=== PATIENT | female | born 1975 | race Caucasian/White ===

== ENCOUNTER 2016-10-18 18:52 | Emergency (ER) | payer MEDICAID ==
[2016-10-18] MEDS ORDERED: oxyCOD/ACETAMIN 5 MG/325 MG TABLET PO STA (19:24)
[2016-10-18] MEDS ORDERED: oxyCOD/ACETAMIN 5 MG/325 MG TABLET PO ONE (19:29)
[2016-10-18] MEDS ORDERED: oxyCODONE/ACET 5/325 Prepack 4 PO STA (20:32)
[2016-10-18] MEDS ORDERED: oxyCODONE/ACET 5/325 Prepack 4 PO ONE (20:39)
== END 2016-10-18 20:47 | disposition home or self-care (01) ==
DX: S20.212A Contusion of left front wall of thorax, initial encounter (principal); W01.198A Fall on same level from slipping, tripping and stumbling with subsequent striking against other object, initial encounter; F17.200 Nicotine dependence, unspecified, uncomplicated
CPT/HCPCS: 71101; 99283; A9270

== ENCOUNTER 2016-10-24 14:31 | Outpatient (CLI) | payer MEDICAID | END 2016-10-24 14:32 | disposition home or self-care (01) | DX: S22.32XA Fracture of one rib, left side, initial encounter for closed fracture (principal) ==

== ENCOUNTER 2016-11-09 14:14 | Emergency (ER) | payer MEDICAID ==
[2016-11-09] MEDS ORDERED: ONDANSETRON 4 MG/2 ML VIAL IVP STA (16:15)
[2016-11-09] MEDS ORDERED: SODIUM CHLORIDE 0.9% 1,000 ML IV ONE (16:15)
[2016-11-09] MEDS ORDERED: KETOROLAC 60 MG/2 ML VIAL IVP STA (16:15)
[2016-11-09] MEDS ORDERED: ONDANSETRON 4 MG/2 ML VIAL ONE (16:19)
[2016-11-09] MEDS ORDERED: KETOROLAC 30 MG/ML VIAL ONE (16:19)
[2016-11-09] MEDS ORDERED: ONDANSETRON ODT 4 MG Prepack 2 TL PRN (18:30)
[2016-11-09] MEDS ORDERED: ONDANSETRON ODT 4 MG Prepack 2 TL ONE (18:32)
[2016-11-09] MEDS ORDERED: MAG HYDROX/AL HYDROX/SIMETH 30 ML UDC PO STA (18:36)
[2016-11-09] MEDS ORDERED: MAG HYDROX/AL HYDROX/SIMETH 30 ML UDC ONE (18:37)
== END 2016-11-09 18:45 | disposition home or self-care (01) ==
DX: K52.9 Noninfective gastroenteritis and colitis, unspecified (principal); E86.0 Dehydration; R07.89 Other chest pain; S22.49XD Multiple fractures of ribs, unspecified side, subsequent encounter for fracture with routine healing; W19.XXXD Unspecified fall, subsequent encounter; F17.200 Nicotine dependence, unspecified, uncomplicated
CPT/HCPCS: 36415; 80053; 81003; 81025; 83690; 85025; 96374; 96375; 99283; 99284; A9270

== ENCOUNTER 2017-10-17 13:06 | Outpatient (CLI) | payer MEDICAID ==
--- NOTE | 2017-10-18 14:08 | MRI Report ---
EXAM: RIGHT KNEE MRI WITHOUT CONTRAST EXAM DATE: 10/17/2017 02:20 PM. CLINICAL HISTORY: Right knee medial meniscus tear. COMPARISON: 10/08/2017 radiograph. TECHNIQUE: Multiplanar, multisequence T1-weighted and fluid-sensitive sequences of the knee without c ontrast. Other: None. FINDINGS: Bones: No fractures. Periarticular marrow edema and cyst formation is seen in the central patella. Mi nimal tibiofemoral osteophyte formation is present.. Articular Cartilage: The central patellar cartilage demonstrates mild to moderate thinning and surfac e irregularity. The trochlear cartilage is intact. The tibiofemoral articular cartilage is intact. Medial Meniscus: There is linear increased T2 signal in the posterior horn of the medial meniscus. Th is appears to extend to the intraarticular surface on series 602, image 6, and thus is likely at leas t a partial horizontal tear. Lateral Meniscus: The lateral meniscus is intact. Cruciate Ligaments: The anterior and posterior cruciate ligaments are intact. Collateral Ligaments: The medial collateral and lateral collateral ligamentous structures are intact. Tendons: The quadriceps, patellar, semimembranosus, and popliteus tendons are unremarkable. Musculature: No edema or fatty atrophy. Other: A mild knee effusion is present.. A small popliteal cyst is seen. No loose bodies. The medial and lateral retinacula are intact. Prepatellar subcutaneous edema is present.. IMPRESSION: 1. Mild chondromalacia patella. 2. At least partial horizontal tear of the posterior horn of the medial meniscus. 3. Mild knee effusion. [facility] MUSCULOSKELETAL RADIOLOGY SECTION Referring Provider Line: [phone] SITE ID: [id number]
== END 2017-10-17 13:07 | disposition home or self-care (01) ==
LOC: DI 13:06
PROVIDERS: ATTEND Orthopaedic Surgery
DX: S83.241A Other tear of medial meniscus, current injury, right knee, initial encounter (principal); M22.41 Chondromalacia patellae, right knee; M25.461 Effusion, right knee

== ENCOUNTER 2017-10-23 13:35 | Outpatient (CLI) | payer MEDICAID | END 2017-10-23 13:36 | disposition home or self-care (01) | LOC: DI.N 13:35 | DX: Z53.9 Procedure and treatment not carried out, unspecified reason (principal) ==

== ENCOUNTER 2017-10-28 15:12 | Outpatient (CLI) | payer MEDICAID ==
[2017-10-28 15:30] LABS: BASOPHILS # (AUTO) 0.1 10^3/uL (0.0-0.1); BASOPHILS % (AUTO) 1.1 %; EOSINOPHILS # (AUTO) 1.3 10^3/uL (0.0-0.7); EOSINOPHILS % (AUTO) 10.9 %; HGB - HEMOGLOBIN 11.6 g/dL (12.0-16.0); LYMPHOCYTES # (AUTO) 5.6 10^3/uL (1.5-3.5); LYMPHOCYTES % (AUTO) 45.1 %; MEAN CORPUSCULAR HEMOGLOBIN 29.1 pg (27.0-31.0); MEAN CORPUSCULAR HGB CONC 34.1 g/dL (32.0-36.0); MEAN CORPUSCULAR VOLUME 85.3 fL (81.0-99.0); MEAN PLATELET VOLUME 7.1 fL (7.9-10.8); MONOCYTES # (AUTO) 0.7 10^3/uL (0.0-1.0); MONOCYTES % (AUTO) 5.3 %; NEUTROPHILS # (AUTO) 4.7 10^3/uL (1.5-6.6); NEUTROPHILS % (AUTO) 37.6 %; PLT - PLATELET COUNT 293 10^3/uL (130-450); RED BLOOD COUNT 3.98 10^6/uL (4.20-5.40); RED CELL DISTRIBUTION WIDTH 13.2 % (12.0-15.0); WHITE BLOOD COUNT 12.4 x10^3/uL (4.8-10.8)
[2017-10-28 15:42] LABS: ALBUMIN/GLOBULIN RATIO 1.3 (1.0-2.2); BILIRUBIN,TOTAL 0.4 mg/dL (0.2-1.0); CALCIUM 8.8 mg/dL (8.5-10.3); CREATININE 0.7 mg/dL (0.4-1.0); TOTAL PROTEIN 7.2 g/dL (6.7-8.2)
[2017-10-28 16:34] LABS: PLATELET ESTIMATE, MANUAL NORMAL (130-450,000) (NORMAL); PLATELET MORPHOLOGY NORMAL APPEARANCE (NORMAL); RBC MORPHOLOGY (MULTIPLE) NORMAL APPEARANCE (NORMAL)
--- NOTE | 2017-10-28 17:13 | XRAY Report ---
TWO VIEW CHEST: 10/28/2017 COMPARISON: Two view chest 06/24/2017. INDICATION: Preprocedure. TECHNIQUE: Two views. FINDINGS: Clear lungs. No pneumothorax or pleural effusion. Mediastinum unremarkable. IMPRESSION: NO EVIDENCE OF ACUTE THORACIC PROCESS. TD: 10/28/2017 17:12 MTDD
[2017-10-29 14:12] LABS: H. PYLORIS ANTIGEN STL NEGATIVE (Negative)
== END 2017-10-28 15:13 | disposition home or self-care (01) ==
LOC: LAB 15:12
PROVIDERS: ATTEND Orthopaedic Surgery
DX: Z01.818 Encounter for other preprocedural examination (principal); R10.13 Epigastric pain
CPT/HCPCS: 36415; 71046; 80053; 85025; 87338

== ENCOUNTER 2017-12-07 08:50 | Day surgery (SDC) | payer MEDICAID ==
[2017-12-07] MEDS ORDERED: LACTATED RINGERS 1,000 ML IV ONE (09:09)
[2017-12-07] MEDS ORDERED: ceFAZolin 2 GM/50 ML 2 GM/50 ML BAG IV ONE (09:09)
[2017-12-07] MEDS ORDERED: BUPIVACAINE 0.25%-EPI 1:200000 PF 30 ML VIAL ONE ×2 (11:40→12:05)
[2017-12-07] MEDS ORDERED: EPINEPHrine 1 MG/ML AMP ONE (12:05)
[2017-12-07] MEDS ORDERED: BUPIVACAINE 0.25%-EPI 1:200000 PF 30 ML VIAL SUBQ ONE (12:34)
[2017-12-07] MEDS ORDERED: fentaNYL 100 MCG/2 ML VIAL IVP ONE (13:00)
[2017-12-07] MEDS ORDERED: MIDAZOLAM 2 MG/2 ML VIAL IVP ONE (13:00)
[2017-12-07] MEDS ORDERED: ONDANSETRON 4 MG/2 ML VIAL IVP ONE (13:00)
[2017-12-07] MEDS ORDERED: ePHEDrine 50 MG/ML VIAL IVP ONE (13:00)
[2017-12-07] MEDS ORDERED: PROPOFOL 200 MG/20 ML VIAL IVP ONE (13:00)
[2017-12-07] MEDS ORDERED: DEXAMETHASONE 4 MG/ML VIAL IVP ONE (13:00)
[2017-12-07] MEDS ORDERED: GLYCOPYRROLATE 1 MG/5 ML VIAL IVP ONE (13:00)
[2017-12-07] MEDS ORDERED: LIDOCAINE-MPF 2% 5 ML VIAL IM ONE (13:00)
[2017-12-07] MEDS: fentaNYL 100 MCG/2 ML VIAL ONE ×2 (13:55→14:02)
[2017-12-07] MEDS: HYDROmorphone 1 MG/ML CARPUJECT ONE ×2 (14:10→14:20)
[2017-12-07] MEDS ORDERED: HYDROmorphone 0.5 MG/0.5 ML SYRINGE ONE (14:49)
[2017-12-07] MEDS ORDERED: oxyCOD/ACETAMIN 5 MG/325 MG TABLET PO ONE (15:44)
[2017-12-07 16:11] VITALS: BP 123/70
--- NOTE | 2017-12-08 22:44 | OPERATIVE REPORT ---
DATE OF SERVICE: 12/07/2017 Physician: Manfred Bowie MD PREOPERATIVE DIAGNOSIS: Right knee medial meniscus tear. POSTOPERATIVE DIAGNOSIS: Right knee medial meniscus tear. PROCEDURE PERFORMED: Right knee arthroscopic partial medial meniscectomy. SURGEON: Manfred Bowie MD CREDIT ANALYST: None. ANESTHESIA: General. INDICATIONS FOR PROCEDURE: This woman has suffered for several months with knee pain with a fairly acute onset. MRI scan showed a distinct tear in the body of the medial meniscus. PROCEDURE: Patient was brought into the operating room and placed under adequate general anesthesia. The right lower extremity was prepped and sterilely draped in usual fashion. Timeout was held to identify patient, site and procedure. No tourniquet was used. The usual inferolateral inferomedial portals were established for scope and instrumentation respectively. Exam of the knee was done. FINDINGS: Patellofemoral joint had some mild grade 2 chondromalacia of the medial facet. Otherwise normal cartilage. In the notch, the ACL was in its normal position and tightened with stress. In the lateral compartment, the lateral meniscus was in excellent condition. No sign of even fraying. There was no chondromalacia above or below. In the medial compartment, there was a very distinct somewhat radial tear in the body of the medial meniscus. This stretched back towards the posterior horn, but did not seem to get into the horn itself. There was not waviness of the straight posterior horn. There was no articular cartilage damage. Following exam of the knee, attention was directed to the medial compartment. The small biters, rotary shaver, and the burning device were utilized to trim the meniscus back to stable remnant. There was no sign of articular cartilage damage at the end of the procedure. Knee was irrigated with a pulsatile irrigation with about 400 mL with normal saline. Portals were closed with 4-0 nylon [id number] sutures. Sterile bandage was applied. Patient was then awakened, extubated, and taken to recovery room in good condition, having tolerated the procedure well with very minimal blood loss. TD: 12/08/2017 22:44
== END 2017-12-07 08:51 | disposition home or self-care (01) ==
LOC: SDS 08:50
PROVIDERS: ATTEND Orthopaedic Surgery
PROC: 0SBC4ZZ Excision of Right Knee Joint, Percutaneous Endoscopic Approach (ICD-10-PCS; principal; 2017-12-07 10:15)
DX: S83.241A Other tear of medial meniscus, current injury, right knee, initial encounter (principal); F17.210 Nicotine dependence, cigarettes, uncomplicated
CPT/HCPCS: 29881; A9270; J0690; J1170; J7120

== ENCOUNTER 2018-05-31 20:16 | Emergency (ER) | payer MEDICAID ==
[2018-05-31 20:23] VITALS: BP 147/90
--- NOTE | 2018-05-31 21:48 | ED Physician Documentation ---
PD HPI SKIN - Stated complaint Stated Complaint: BOIL - Chief complaint Chief Complaint: Wound - History obtained from History obtained from: Patient - History of Present Illness Timing - onset: How many months ago (2) Timing - details: Gradual onset Pain level now: 6 Location: Chest Quality / character: Painful, Discolored, Raised, Swelling, Draining Contributing factors: Unknown Similar symptoms before: Has not had sx before Recently seen: Not recently seen - Additional information Additional information: c/o "a boil under my right breast" (per patient). the lesion has been there for 2 months but significantly increasing pain and swelling over past week. Has also had purulent d/c x 1 week from this lesion. 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 - Present Medications Home Medications: Ambulatory Orders Medication Instructions Recorded Confirmed Dextroamphetamine/Amphetamine 10 mg PO BID 10/18/16 03/30/18 [Dextroamp-Amphetamin 10 mg Tab] QUEtiapine [SEROquel] 400 mg PO DAILY 10/18/16 03/30/18 Bupropion HCl [Bupropion HCl Sr] 300 mg PO DAILY 12/04/17 03/30/18 Cephalexin [Keflex] 500 mg PO Q6HR #27 capsule 05/31/18 Sulfamethox/Trimeth 800/160 1 each PO BID #13 tablet 05/31/18 [Bactrim Ds 800/160] - Allergies Allergies/Adverse Reactions: Allergies Allergy/AdvReac Type Severity Reaction Status Date / Time aspirin Allergy Hives Verified 05/31/18 20:23 - Social History Does the pt smoke?: Yes Smoking Status: Current every day smoker Does the pt drink ETOH?: No Does the pt have substance abuse?: No - Immunizations Immunizations are current?: Yes - POLST Patient has POLST: No PD ED PE NORMAL - Vitals Vital signs reviewed: Yes - General General: Alert and oriented X 3, No acute distress, Well developed/nourished PD ED PE EXPANDED - Derm SKin visual: 1 - tenderness (2 x 3 cm raised, tender erythema with nodularity but no fluctuance. there is discharge from center of the lesion that is increased with pressure) Results - Vitals Vitals: Vital Signs - 24 hr 05/31/18 20:21 Temperature 37.0 C Heart Rate 108 H Respiratory 18 Rate Blood Pressure 147/90 H O2 Saturation 100 Oxygen O2 Source Room air PD MEDICAL DECISION MAKING - ED course Complexity details: considered differential, d/w patient Departure - Departure Disposition: 01 Home, Self Care Clinical Impression: Abscess Condition: Good Instructions: ED Staph Infec Abx Tx Only Follow-Up: Shemar Cartwright PA-C [Primary Care Provider] - (3-5 days if not improving) Prescriptions: Cephalexin [Keflex] 500 mg PO Q6HR #27 capsule Sulfamethox/Trimeth 800/160 [Bactrim Ds 800/160] 1 each PO BID #13 tablet Discharge Date/Time: 05/31/18 22:46
[2018-05-31] MEDS ORDERED: cephALEXin 250 MG CAPSULE PO STA (22:37)
[2018-05-31] MEDS ORDERED: SULFAMETH/TRIMETH DS 800/160 MG TABLET PO STA (22:37)
== END 2018-05-31 22:46 | disposition home or self-care (01) ==
LOC: ED 20:16
DX: N61.1 Abscess of the breast and nipple (principal); F17.200 Nicotine dependence, unspecified, uncomplicated
CPT/HCPCS: 99283; A9270

== ENCOUNTER 2018-09-13 11:26 | Outpatient (CLI) | payer MEDICAID | END 2018-09-13 11:27 | disposition home or self-care (01) | LOC: SC 11:26 | PROVIDERS: ATTEND Internal Medicine Pulmonary Disease | DX: G47.10 Hypersomnia, unspecified (principal); R41.89 Other symptoms and signs involving cognitive functions and awareness; G47.8 Other sleep disorders; R06.83 Snoring | CPT/HCPCS: 99203; 99212 ==

== ENCOUNTER 2018-10-04 19:26 | Outpatient (CLI) | payer MEDICAID | END 2018-10-04 19:27 | disposition home or self-care (01) | LOC: SC 19:26 | PROVIDERS: ATTEND Internal Medicine Pulmonary Disease | DX: G47.61 Periodic limb movement disorder (principal) | CPT/HCPCS: 95810 ==

== ENCOUNTER 2018-10-21 09:16 | Outpatient (CLI) | payer MEDICAID | END 2018-10-21 09:17 | disposition home or self-care (01) | LOC: SC 09:16 | PROVIDERS: ATTEND Nurse Practitioner Family | DX: R06.83 Snoring (principal); G47.61 Periodic limb movement disorder | CPT/HCPCS: 99212; 99214 ==

== ENCOUNTER 2019-04-17 08:48 | Emergency (ER) | payer MEDICAID ==
[2019-04-17 08:59] VITALS: BP 127/88
--- NOTE | 2019-04-17 09:08 | ED Physician Documentation ---
PD HPI FEMALE - Stated complaint Stated Complaint: MED REFILL - Chief complaint Chief Complaint: General - History obtained from History obtained from: Patient - History of Present Illness Timing - onset: Yesterday Timing - duration: Days (1) Timing - details: Abrupt onset Associated symptoms: Genital sore/lesion (Consistent with her prior herpes outbreak. She has not had one for years so did not have any medicines at home. 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 04/17/19 RX: Valacyclovir HCl [Valacyclovir] 1,000 mg PO TID #18 tablet 04/17/19 - Allergies Allergies/Adverse Reactions: Allergies Allergy/AdvReac Type Severity Reaction Status Date / Time aspirin Allergy Hives Verified 04/17/19 08:59 - Social History Does the pt smoke?: Yes Smoking Status: Current every day smoker Does the pt drink ETOH?: No Does the pt have substance abuse?: No - Immunizations Immunizations are current?: Yes - POLST Patient has POLST: No PD ED PE NORMAL - Vitals Vital signs reviewed: Yes - General General: Alert and oriented X 3, No acute distress, Well developed/nourished - Abdomen Abdomen: Soft, Non tender - Female Female : Deferred - Back Back: No CVA TTP Results - Vitals Vitals: Vital Signs - 24 hr 04/17/19 08:57 Temperature 36.4 C L Heart Rate 82 Respiratory 18 Rate Blood Pressure 127/88 H O2 Saturation 99 Oxygen O2 Source Room air PD MEDICAL DECISION MAKING - ED course Complexity details: considered differential, d/w patient Departure - Departure Disposition: 01 Home, Self Care Clinical Impression: Herpes simplex Condition: Stable Record reviewed to determine appropriate education?: Yes Instructions: ED Herpes Simplex Virus Type 2 Follow-Up: Shemar Cartwright PA-C [Primary Care Provider] - Prescriptions: RX: Lidocaine 1 applic TP QID PRN #15 cream..g. PRN Reason: Pain RX: Valacyclovir HCl [Valacyclovir] 1,000 mg PO TID #18 tablet Comments: Use the valacyclovir 3 times a day for 2 days. This commonly is sufficient to decrease the outbreak. Can go 1/3-day if needed. [place] the rest for the next outbreak. Use lidocaine cream if needed for discomfort. Recheck if not improved well over the next 2 to 3 days. Discharge Date/Time: 04/17/19 09:18
== END 2019-04-17 09:18 | disposition home or self-care (01) ==
LOC: ED 08:48
DX: A60.00 Herpesviral infection of urogenital system, unspecified (principal); F17.200 Nicotine dependence, unspecified, uncomplicated
CPT/HCPCS: 99281; 99282

== ENCOUNTER 2020-06-07 20:26 | Outpatient (CLI) | payer MEDICAID | END 2020-06-07 20:27 | disposition home or self-care (01) | LOC: COV 20:26 | PROVIDERS: ATTEND Family Medicine | DX: R05 Cough (principal); Z20.828 Contact with and (suspected) exposure to other viral communicable diseases; R06.02 Shortness of breath; R68.83 Chills (without fever); R53.83 Other fatigue; J02.9 Acute pharyngitis, unspecified; R43.9 Unspecified disturbances of smell and taste; M79.10 Myalgia, unspecified site; R11.2 Nausea with vomiting, unspecified ==

== ENCOUNTER 2020-07-10 08:00 | Outpatient (CLI) | payer MEDICAID ==
[2020-07-10 18:09] LABS: BASOPHILS # (AUTO) 0.1 10^3/uL (0.0-0.1); EOSINOPHILS # (AUTO) 0.2 10^3/uL (0.0-0.7); EOSINOPHILS % (AUTO) 1.7 %; HGB - HEMOGLOBIN 12.6 g/dL (12.0-16.0); LYMPHOCYTES # (AUTO) 3.4 10^3/uL (1.5-3.5); LYMPHOCYTES % (AUTO) 37.8 %; MEAN CORPUSCULAR HEMOGLOBIN 29.4 pg (27.0-31.0); MEAN CORPUSCULAR VOLUME 89.3 fL (81.0-99.0); MEAN PLATELET VOLUME 9.8 fL (7.9-10.8); MONOCYTES # (AUTO) 0.4 10^3/uL (0.0-1.0); MONOCYTES % (AUTO) 4.3 %; NEUTROPHILS # (AUTO) 4.9 10^3/uL (1.5-6.6); NEUTROPHILS % (AUTO) 54.9 %; PLT - PLATELET COUNT 342 10^3/uL (130-450); RED BLOOD COUNT 4.28 10^6/uL (4.20-5.40); RED CELL DISTRIBUTION WIDTH 12.3 % (12.0-15.0); WHITE BLOOD COUNT 8.9 x10^3/uL (4.8-10.8)
[2020-07-10 19:42] LABS: ALBUMIN 4.2 g/dL (3.2-5.5); ALBUMIN/GLOBULIN RATIO 1.4 (1.0-2.2); ALKALINE PHOSPHATASE 79 IU/L (42-121); ALT ALANINE AMINOTRANSFERASE 32 IU/L (10-60); AST ASPARTATE AMINOTRANSFERASE 23 IU/L (10-42); BILIRUBIN,TOTAL 0.5 mg/dL (0.2-1.0); BUN - BLOOD UREA NITROGEN 14 mg/dL (6-20); CARBON DIOXIDE - CO2 23 mmol/L (21-32); CHLORIDE 104 mmol/L (101-111); CHOL/HDL RATIO 4.2 (<4.4); CHOLESTEROL 254 mg/dL; CREATININE 0.5 mg/dL (0.4-1.0); GLUCOSE 133 mg/dL (70-100); HDL CHOLESTEROL 60 mg/dL; LDL CHOLESTEROL,CALCULATED 166 mg/dL; LDL/HDL RATIO 2.8 (<4.4); SODIUM 137 mmol/L (135-145); TOTAL PROTEIN 7.3 g/dL (6.7-8.2); VLDL CHOLESTEROL 28 mg/dL
[2020-07-10 20:22] LABS: FOLLICLE STIMULATING HORMONE 7.16 mIU/mL
[2020-07-11 12:31] LABS: HEPATITIS B SURFACE ANTIGEN NON-REACTIVE (NON-REACTIVE)
[2020-07-11 12:32] LABS: HEPATITIS C ANTIBODY REACTIVE (NON-REACTIVE)
[2020-07-18 07:47] LABS: HCV RNA QNT <1.18 NOT DETECTED Log IU/mL (NOT DETECTED); HCV RNA QUANT RT PCR <15 NOT DETECTED IU/mL (NOT DETECTED)
== END 2020-07-10 23:59 | disposition home or self-care (01) ==
LOC: LAB.WCP 08:00
PROVIDERS: ATTEND Family Medicine
DX: Z00.00 Encounter for general adult medical examination without abnormal findings (principal); N92.0 Excessive and frequent menstruation with regular cycle; N95.1 Menopausal and female climacteric states; B19.20 Unspecified viral hepatitis C without hepatic coma
CPT/HCPCS: 36415; 80053; 80061; 81599; 83001; 83721; 84443; 84702; 85025; 86803; 87340; 87517; 87902

== ENCOUNTER 2020-07-24 09:09 | Outpatient (CLI) | payer MEDICAID ==
--- NOTE | 2020-07-24 11:40 | Ultrasound Report ---
PROCEDURE: Abdomen Complete INDICATIONS: Hepatitis B TECHNIQUE: Real-time scanning was performed of the abdominal and retroperitoneal organs, with image documentatio n. COMPARISON: None FINDINGS: Liver: Increased hepatic parenchymal echogenicity, nonspecific but consistent with a diffuse hepatoce llular process such as the provided history of hepatitis B. Hepatic echotexture is normal. There is a simple cyst in the right hepatic lobe measuring 5 mm. No evidence of solid liver mass. Gallbladder: Normal distention of the gallbladder without wall thickening or pericholecystic fluid. Biliary ducts: No extrahepatic or intrahepatic biliary ductal dilatation. Pancreas: Visualized portions of the pancreas are sonographically normal. Spleen: Spleen is normal in size and homogeneous in echotexture. Kidneys: No hydronephrosis. 2 simple cysts in the right kidney, largest 1.5 cm. Subcentimeter cyst le ft kidney. No evidence of a solid renal lesion. Normal cortical thickness and echogenicity otherwise. Aorta: Visualized aorta is normal in caliber at less than 3 cm. Iliacs: Proximal common iliac arteries are normal in caliber at less than 2.5 cm. IVC: Intrahepatic inferior vena cava is patent. Miscellaneous: No free abdominal fluid. IMPRESSION: Increased hepatic parenchymal echogenicity, nonspecific finding which can be seen in the setting of n umerous diffuse hepatocellular processes, including viral hepatitis. Reviewed by: Richie Bonilla MD on 07/24/2020 11:39 AM PST Approved by: Richie Bonilla MD on 07/24/2020 11:39 AM PST Station ID: [id number]
== END 2020-07-24 09:10 | disposition home or self-care (01) ==
LOC: DI 09:09
PROVIDERS: ATTEND Family Medicine
DX: B19.10 Unspecified viral hepatitis B without hepatic coma (principal)

== ENCOUNTER 2020-08-27 14:46 | Outpatient (CLI) | payer MEDICAID ==
--- NOTE | 2020-08-28 13:19 | Mammography Report ---
BILATERAL DIGITAL SCREENING MAMMOGRAM 3D/2D: 08/27/2020 CLINICAL: Baseline exam. Routine screening. No prior exams were available for comparison. The tissue of both breasts is heterogeneously dense. T his may lower the sensitivity of mammography. There is an asymmetry in the left breast middle depth central to the nipple seen on the mediolateral oblique view only. No other significant masses, calcifications, or other findings are seen in either breast. IMPRESSION: INCOMPLETE: NEEDS ADDITIONAL IMAGING EVALUATION The asymmetry in the left breast is indeterminate. Additional views with possible ultrasound are rec ommended. This exam was interpreted at Station ID: [id number]. NOTE: For mammograms, a report in lay terms will be sent to the patient. Approximately 15% of breast malignancies will not be visualized mammographically. In the management of a palpable breast mass, a negative mammogram must not discourage biopsy of a clinically suspicious lesion. Electronically Signed By: Richie Bonilla M.D., jr/arlen:08/27/2020 17:30:39 ACR BI-RADS Category 0: Incomplete 3340F PARENCHYMAL PATTERN: (D) - The breast(s) demonstrate(s) heterogeneously dense fibroglandular nani carmichael. BI-RADS CATEGORY: (0) - 0 Mammo and [place] [id number] Immediate follow-up LATERALITY: (B)
== END 2020-08-27 14:47 | disposition home or self-care (01) ==
LOC: DI.N 14:46
DX: Z12.31 Encounter for screening mammogram for malignant neoplasm of breast (principal); N64.89 Other specified disorders of breast
CPT/HCPCS: 77067

== ENCOUNTER 2020-09-27 08:31 | Outpatient (CLI) | payer MEDICAID ==
--- NOTE | 2020-09-28 11:05 | Mammography Report ---
UNILATERAL LEFT DIGITAL DIAGNOSTIC MAMMOGRAM 3D/2D: 09/27/2020 CLINICAL: Patient returns today to evaluate a focal asymmetry in the left breast. Comparison is made to exam dated: 08/27/2020 mammogram - [facility]. The tissue of left breast is heterogeneously dense. This may lower the sensitivity of mammography. There is an oval equal density focal asymmetry with an obscured and circumscribed margin in the left breast at 3 o'clock posterior depth. No other significant masses or calcifications are seen in the breast. IMPRESSION: INCOMPLETE: NEEDS ADDITIONAL IMAGING EVALUATION The oval equal density focal asymmetry in the left breast is indeterminate. An ultrasound is recomme nded. Ultrasound will be performed immediately following the current exam. This exam was interpreted at Station ID: [id number]. NOTE: For mammograms, a report in lay terms will be sent to the patient. Approximately 15% of breast malignancies will not be visualized mammographically. In the management of a palpable breast mass, a negative mammogram must not discourage biopsy of a clinically suspicious lesion. Electronically Signed By: Femi Hernandez M.D. ddp/:09/27/2020 08:59:21 ACR BI-RADS Category 0: Incomplete 3340F PARENCHYMAL PATTERN: (D) - The breast(s) demonstrate(s) heterogeneously dense fibroglandular nani carmichael. BI-RADS CATEGORY: (0) - 0 Ultrasound [id number] Immediate follow-up LATERALITY: (B)
--- NOTE | 2020-09-28 11:05 | Ultrasound Report ---
LIMITED ULTRASOUND OF LEFT BREAST AND AXILLA: 09/27/2020 CLINICAL: Patient returns today to evaluate a density in the left breast. Comparison is made to exams dated: 09/27/2020 mammogram and 08/27/2020 mammogram - [facility]. Color flow and real-time ultrasound of the left breast 2-4 o'clock, and axilla regions were performed on the areas of interest. There is a 0.7 cm x 0.4 cm x 0.6 cm oval mass with a circumscribed margin in the left breast at 4 o'c lock posterior depth. This oval mass is hypoechoic. This correlates with mammography findings. Col or flow imaging demonstrates that there is an adjacent vascularity. No suspicious enlarged lymph nodes were seen sonographically in the left axilla. IMPRESSION: SUSPICIOUS OF MALIGNANCY The 0.7 cm x 0.4 cm x 0.6 cm oval mass in the left breast is suspicious of malignancy. An ultrasound guided biopsy is recommended. The findings were discussed with the patient at the conclusion of the study by Dr. Morin. This exam was interpreted at Station ID: [id number]. Electronically Signed By: Femi Hernandez M.D. ddp/:09/27/2020 10:19:50 Ultrasound BI-RADS: 4 Suspicious for malignancy BI-RADS CATEGORY: (4) - 4 None [id number] Immediate follow-up LATERALITY: ()
== END 2020-09-27 08:32 | disposition home or self-care (01) ==
LOC: DI 08:31
PROVIDERS: ATTEND Family Medicine
DX: N63.23 Unspecified lump in the left breast, lower outer quadrant (principal)

== ENCOUNTER 2020-10-05 13:06 | Outpatient (CLI) | payer MEDICAID ==
[2020-10-05] MEDS ORDERED: BUFFERED LIDOCAINE 10 ML SYRINGE ONE (13:39)
[2020-10-05] MEDS ORDERED: LIDOCAINE 1%-EPI 1:100000 20 ML MDV ONE ×2 (13:42→15:43)
[2020-10-05] MEDS ORDERED: LIDOCAINE 1%-EPI 1:100000 20 ML MDV ID ONE (14:00)
[2020-10-05] MEDS ORDERED: BUFFERED LIDOCAINE 10 ML SYRINGE IU ONE (14:00)
--- NOTE | 2020-10-09 11:59 | Mammography Report ---
UNILATERAL LEFT DIGITAL DIAGNOSTIC MAMMOGRAM: 10/05/2020 CLINICAL: Post left breast ultrasound biopsy, clip placement imaging. Comparison is made to exams dated: 10/05/2020 ultrasound biopsy, 09/27/2020 ultrasound, 09/27/2020 mamm ogram, and 08/27/2020 mammogram - [facility]. The tissue of left breast is heteroge neously dense. This may lower the sensitivity of mammography. A biopsy clip is seen in the 4:00 of left breast. IMPRESSION: The biopsy clip is in expected position. This exam was interpreted at Station ID: [id number]. NOTE: For mammograms, a report in lay terms will be sent to the patient. Approximately 15% of breast malignancies will not be visualized mammographically. In the management of a palpable breast mass, a negative mammogram must not discourage biopsy of a clinically suspicious lesion. Electronically Signed By: Ayaka Urbina M.D. fx/:10/09/2020 10:10:00 ACR BI-RADS Category n/a PARENCHYMAL PATTERN: (D) - The breast(s) demonstrate(s) heterogeneously dense fibroglandular nani carmichael. BI-RADS CATEGORY: () - Unspecified - other recall n/a LATERALITY: (B)
--- NOTE | 2020-10-09 11:59 | Ultrasound Report ---
ULTRASOUND GUIDED BIOPSY LEFT BREAST USING VACUUM DEVICE WITH POST MAMMOGRAPHIC AND ULTRASOUND IMAGIN 10/05/2020 CLINICAL: Left breast mass. PATIENT CONSENT: Risks (minor bleeding, infection, vasovagal reaction and repeat procedure), benefits and alternatives were explained to the patient and written informed consent was obtained. Correlation is made to exam dated: 09/27/2020 ultrasound - [facility]. An ultrasound guided biopsy using real-time ultrasound was performed for the oval mass located in the left breast at 4 o'clock anterior depth. This was described on the previous ultrasound report. The skin was prepped in the usual manner. Local anesthetic was administered to the access site. The ab normality was approached from the lateral aspect. A 13 gauge biopsy needle was placed adjacent to th e abnormality under ultrasound guidance. Once the needle was documented to be in the correct locatio n, five specimens were obtained using the Mammotome biopsy system. Post procedure mammographic and u ltrasound imaging demonstrates the clip at the targeted area. The specimens were sent to the [facility] for pathological analysis. IMPRESSION: ULTRASOUND GUIDED BIOPSY BENIGN Ultrasound guided biopsy of the mass in the left breast anterior depth was successful. Pathology indicates benign fibrocystic changes (FC). Pathology results are concordant with ultrasou nd findings. Return to annual mammogram screening schedule is recommended. Results and recommendations will be c ommunicated to the ordering provider's office. This exam was interpreted at Station ID: [id number]. Ayaka Gloria M.D. fx,krg/:10/09/2020 11:31:06 BI-RADS CATEGORY: () - Mammogram [id number] return to screening LATERALITY: (B)
== END 2020-10-05 13:07 | disposition home or self-care (01) ==
LOC: DI 13:06
PROVIDERS: ATTEND Family Medicine
DX: R92.8 Other abnormal and inconclusive findings on diagnostic imaging of breast (principal); N60.12 Diffuse cystic mastopathy of left breast
CPT/HCPCS: 19083